=== PATIENT | male | born 1960 | race Two or more races ===

== ENCOUNTER 2024-04-30 03:05 | Emergency (ER) | payer OTHER ==
[~2024-04-30] VITALS: Ht 177.8 cm; Wt 77.1 kg
[2024-04-30] MEDS ORDERED: ONDANSETRON 4 MG/2 ML VIAL ONE ×2 (03:30→06:14)
[2024-04-30] MEDS ORDERED: KETOROLAC TROMETHAMINE 15 MG INJ ONE (03:30)
[2024-04-30] MEDS: ONDANSETRON 4 MG/2 ML VIAL IV ONE ×2 (03:34→06:22)
[2024-04-30] MEDS: IV NORMAL SALINE 500 ML BAG IV ONE ×2 (03:35→06:22)
[2024-04-30] MEDS: KETOROLAC TROMETHAMINE 15 MG INJ IVP ONE (03:36)
[2024-04-30 03:40] LABS: BASOPHILS # (AUTO) 0.1 K/UL (0.0-0.2); BASOPHILS % (AUTO) 0.7 % (0.0-2.0); EOSINOPHILS # (AUTO) 0.2 K/uL (0.0-0.7); EOSINOPHILS % (AUTO) 1.7 % (0.0-7.0); HEMATOCRIT 43.5 % (36.7-47.1); HEMOGLOBIN 14.7 g/dL (12.5-16.3); LYMPHOCYTES % (AUTO) 21.1 % (20.5-51.5); MEAN CORPUSCULAR HEMOGLOBIN 29.9 uug (23.8-33.4); MEAN CORPUSCULAR HGB CONC 34 g/dL (32.5-36.3); MEAN CORPUSCULAR VOLUME 88.6 fL (73.0-96.2); MONOCYTES # (AUTO) 0.6 K/uL (0.1-1.30); MONOCYTES % (AUTO) 6.9 % (0.0-11.0); NEUTROPHILS # (AUTO) 6.5 K/uL (1.8-8.9); NEUTROPHILS % (AUTO) 69.6 % (38.5-71.5); PLATELET COUNT (AUTO) 232 K/uL (152-348); RED BLOOD CELL COUNT(AUTO) 4.91 MIL/uL (4.06-5.63); RED CELL DISTRIBUTION WIDTH 13.7 % (12.1-16.2); WHITE BLOOD COUNT (AUTO) 9.3 K/uL (3.6-10.2)
[2024-04-30 03:41] LABS: DIFFERENTIAL COMMENT 1
[2024-04-30 03:48] LABS: CALCIUM 9.6 mg/dL (8.5-10.1); CREATININE 0.9 mg/dL (0.6-1.3); POTASSIUM 3.9 mmol/L (3.5-5.1)
[2024-04-30 03:54] LABS: ALBUMIN 4.1 g/dL (3.4-5.0); BILIRUBIN,TOTAL 0.5 mg/dL (0.2-1.0); C-REACTIVE PROTEIN 0.22 mg/dL (0.00-0.30); MAGNESIUM 2.3 mg/dL (1.8-2.4); TOTAL PROTEIN, SERUM 7.8 g/dL (6.4-8.2)
[2024-04-30] MEDS ORDERED: IOHEXOL 300MG/ML 100 ML INFUS..BTL ONE (04:18)
[2024-04-30] MEDS ORDERED: SWABABLE VALVE TRANSFER SET EA MC ONE (04:18)
[2024-04-30] MEDS ORDERED: IV NORMAL SALINE 250 ML IV ONE (04:18)
[2024-04-30] MEDS ORDERED: DICYCLOMINE HCL 20 MG TABLET ONE (04:31)
[2024-04-30] MEDS: DICYCLOMINE HCL 10 MG CAPSULE PO STA (04:33)
[2024-04-30] MEDS: MORPHINE SULFATE 4 MG/1 ML DISP.SYRIN IV ONE ×2 (04:57→06:22)
[2024-04-30 05:17] LABS: *BILIRUBIN,URIN NEGATIVE (NEGATIVE); *BLOOD, URINE 3+ (NEGATIVE); *CLARITY,URINE CLEAR (CLEAR); *COLOR,URINE YELLOW (YELLOW); *KETONES,URINE 2+ (NEGATIVE); *PROTEIN,URINE 1+ (NEGATIVE); *UROBILINOGEN,URINE 0.2 E.U./dl (NORMAL); LEUKOCYTE ESTERASE ,URINE NEGATIVE (NEGATIVE); NITRITE, URINE NEGATIVE (NEGATIVE); PH,URINE 5.5 (5.0-8.0); UGLUCOSE NEGATIVE (NEGATIVE)
[2024-04-30 05:33] LABS: BACTERIA,URINE FEW /HPF (NONE SEEN); MUCUS,URINE FEW /LPF (0-FEW); SQUAMOUS EPITHELIAL CELL,UR NONE SEEN /HPF (NONE SEEN); WBC,URINE NONE SEEN /HPF (0-3)
[2024-04-30] MEDS ORDERED: TAMSULOSIN HCL 0.4 MG CAP.SR.24H ONE (05:45)
[2024-04-30] MEDS ORDERED: CEFTRIAXONE /D5W 50ML IVPB **ER PYXIS IV ONE (05:50)
[2024-04-30] MEDS ORDERED: ACET-3102 PO (05:51)
[2024-04-30] MEDS ORDERED: OXYC-470 PO (05:51)
[2024-04-30] MEDS ORDERED: ONDA4TAB5 PO (05:51)
[2024-04-30] MEDS ORDERED: TAMS-3 PO (05:51)
[2024-04-30] MEDS ORDERED: OXYC5TAB3 PO (05:51)
[2024-04-30] MEDS ORDERED: IBUP-1955 PO (05:51)
[2024-04-30] MEDS ORDERED: CEPH500C2 PO (05:55)
[2024-04-30] MEDS: CEFTRIAXONE 1 G in IV DEXTROSE 5% 50 ML IV ONE (06:01)
[2024-04-30] MEDS ORDERED: MORPHINE SULFATE 4 MG/1 ML DISP.SYRIN ONE (06:14)
[2024-04-30] MEDS: TAMSULOSIN HCL 0.4 MG CAP.SR.24H PO ONE (06:22)
[2024-04-30 07:15] VITALS: BP 142/82; TEMP 98.1; O2SAT 99
== END 2024-04-30 07:15 | disposition home or self-care (01) ==
LOC: ER 03:30
DX: N13.2 Hydronephrosis with renal and ureteral calculous obstruction (principal); N28.1 Cyst of kidney, acquired; R11.2 Nausea with vomiting, unspecified; R10.33 Periumbilical pain; R10.84 Generalized abdominal pain
CPT/HCPCS: 99285; 74177; 96365; 96375; 96361; 80053; 81001; 83690; 83735; 85025; 86140; 36415; 96376; 83605; J1885; J0696; J2405 ×2; Q9967; J2270 ×2; J7040 ×2; A4606; A4663